=== PATIENT | male | born 1940 | race Caucasian/White ===

== ENCOUNTER → 2018-01-31 | Outpatient (CLI) | payer OTHER ==
[~2018-01-31] MED LIST: ASPI-1471 PO; CYAN100088 PO; FINA5TAB67 PO; FLU180SY11 IM; FLUT16SP19 NS; MECL25TA27 PO; MULT-1335 PO; NIAC500T85 PO; OMEP-125 PO; SIMV-54 PO
[2018-01-31 11:39] LABS: PLATELET COUNT, AUTOMATED 139 K/uL (150-450)
[2018-01-31 11:47] LABS: LDL CHOLESTEROL 47 mg/dl
== END ==
LOC: LAB 11:09
PROVIDERS: ATTEND Emergency Medicine
DX: Z12.5 Encounter for screening for malignant neoplasm of prostate (principal); I25.10 Atherosclerotic heart disease of native coronary artery without angina pectoris; E53.8 Deficiency of other specified B group vitamins; R41.3 Other amnesia
CPT/HCPCS: 36415; 82040; 82247; 82310; 82374; 82435; 82465; 82565; 82607; 82947; 83718; 84075; 84132; 84153; 84155; 84295; 84443; 84450; 84460; 84478; 84520; 85025

== ENCOUNTER 2018-05-22 12:18 | Outpatient (RCR) | payer MEDICARE, OTHER ==
[2018-03-06 10:12] VITALS: BP 157/69
--- NOTE | 2018-03-07 04:56 | [facility] ONCOLOGY NOTE ---
EVENT DATE: March 06, 2018 CHIEF COMPLAINT/REASON FOR VISIT Mr. Mccullough is a pleasant 77-year-old gentleman with mild macrocytic anemia and mild thrombocytopenia, who presents for consultation. HISTORY OF PRESENT ILLNESS Vito presents. He feels extremely well. He feels that he is at his baseline. No fatigue, exercise intolerance, weight loss, concerning lumps or bumps or other symptoms of concern. No frequent infections. He is looking forward to traveling back to [place] for the holidays, but has loved living in [place]. He moved here about three months ago to get away from the busy culture of [place] and the [facility]. He has been extremely happy here. His PSA continues to be high at 7, and he does take finasteride. We do need to follow this, and it may warrant a urology consultation. Regardless, he should have followup PSAs done. His CBCs have been done, and they show mild abnormalities in two cell lines, and so it is very appropriate to do a workup. His B12 has been low in the past but was normal now, and he is on oral replacement. His thyroid level was normal as well. These are appropriate first steps for workup of macrocytic anemia, but we plan to expand it with some additional labs. I am concerned that he may have a very low-grade MDS. MEDICATION LIST 1. Simvastatin 40 mg. 2. Finasteride 5 mg. 3. Flonase twice daily. 4. B12 1000 mcg daily. 5. Multivitamin. 6. Meclizine as needed. 7. Omeprazole 20 mg daily. 8. Aspirin 81 mg daily. PAST MEDICAL HISTORY 1. Osteoarthritis. 2. Cataracts. 3. GERD. 4. History of heart murmur. 5. Hypertension. 6. Hypercholesterolemia. 7. BPH. PAST SURGICAL HISTORY 1. Coronary artery bypass in 1993. 2. Hernia repair approximately four years ago. ALLERGIES No known drug allergies. FAMILY HISTORY Remarkable for heart disease in the family. SOCIAL HISTORY Retired. He has two children, aged 55 and 56. Unfortunately, he is . No recreational drug use, tobacco or alcohol use. REVIEW OF SYSTEMS CONSTITUTIONAL: No fevers, chills, or weight change. HEENT: No headache or vision changes. CARDIOVASCULAR: No chest pain, dyspnea on exertion, or edema. RESPIRATORY: No shortness of breath, wheeze, or cough. GASTROINTESTINAL: No nausea or vomiting. GENITOURINARY: No dysuria or hematuria. MUSCULOSKELETAL: No weakness or joint pains. PSYCHIATRIC: No anxiety or depression. ENDOCRINE: No heat or cold intolerance. SKIN: No concerning findings. Remainder of 14-point review of systems is otherwise negative. PHYSICAL EXAMINATION VITAL SIGNS: Blood pressure 151/69, pulse 61, respiratory rate 16, temperature 96.5 Fahrenheit, oxygen saturation 95% on room air. Weight 65.5 kg, pain 0/10, fatigue 0/10. GENERAL: In stable condition, resting comfortably in the chair. CARDIOVASCULAR: Regular rate and rhythm. I do not appreciate a murmur today, although he does have a documented history of one. LUNGS: Clear to auscultation bilaterally. ABDOMEN: Soft, nontender. No organomegaly or masses. EXTREMITIES: No clubbing, cyanosis, or edema. SKIN: No concerning findings. Remainder of physical exam otherwise otherwise unremarkable. IMPRESSION/REPORT/PLAN Mr. Mccullough is a pleasant 77-year-old gentleman with the followin. Macrocytic anemia. 2. Mild thrombocytopenia. 3. Elevated PSA. I had a detailed discussion about the diagnosis, possible treatment options for mild macrocytic anemia with thrombocytopenia. I discussed the possibility of myelodysplastic syndrome, which is a cancer. He would not require any treatment at this time, though, so I do not feel a bone marrow biopsy is required. I believe we need to expand his lab workup and follow him every three months with labs. He agrees to this. I did repeat many issues, as there was some misunderstanding about what we can or cannot do for myelodysplastic syndrome. I believe he understands that I am concerned about the possibility of this diagnosis but do not believe an aggressive workup is warranted, because no therapy would be indicated at this time, and it would not change his survival or the natural history of this disease with early detection/early treatment. The most important thing is to be checking his labs approximately three months to get a good trend. I have answered all of his many questions today. We will see him back in three months. Dr. Finch, thank you so much for the consultation on this very kind patient of yours. BILLING New patient, level 4. Total time 45 minutes, counseling time 30. MTDD
[2018-03-10 15:59] VITALS: BP 153/72
[2018-03-10 16:30] LABS: PLATELET COUNT, AUTOMATED 142 K/uL (150-450)
[~2018-05-22 12:18] MED LIST changes: +AMLO-125 PO; +ATOR20TA65 PO; +ROSU10TA5 PO
[2018-05-22 12:22] VITALS: BP 173/74
--- NOTE | 2018-05-23 05:22 | ONCOLOGY FOLLOW UP NOTE ---
EVENT DATE: May 22, 2018 CHIEF COMPLAINT/REASON FOR VISIT Mr. Mccullough is a 77-year-old gentleman with new diagnosis of MDS with 5q deletion, who presents for followup. HISTORY OF PRESENT ILLNESS Vito returns. He continues to feel well. He is frustrated with his insurance company's current refusal to pay for standard labs for MDS. As noted in my prior note from March 06, he had macrocytic anemia and thrombocytopenia, which is classic for early MDS in a 77-year-old. We chose not to do a bone marrow biopsy but a lab evaluation, and proved his diagnosis of MDS with a 5q deletion. Our team is continuing to work with his insurance to get this covered. I am more than happy to do a [id number] for this standard work. He continues to have an elevated PSA, and would like him to follow up with Urology. He did not get labs prior to the visit because of the insurance issues. He is concerned that each cost and lab is costing him a lot of money, and until insurance agrees to pay, he is going to refuse to pursue any other labs or followups. He states he will call if he has any symptoms. 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 I am very worried that we will next hear from Vito again when he is in a crisis. MEDICATION LIST 1. Simvastatin 40 mg. 2. Finasteride 5 mg. 3. Flonase twice daily. 4. B12 1000 mcg daily. 5. Multivitamin. 6. Meclizine as needed. 7. Omeprazole 20 mg daily. 8. Aspirin 81 mg daily. PAST MEDICAL HISTORY 1. Osteoarthritis. 2. Cataracts. 3. GERD. 4. History of heart murmur. 5. Hypertension. 6. Hypercholesterolemia. 7. BPH. 8. MDS with 5q deletion. PAST SURGICAL HISTORY 1. Coronary artery bypass in 1993. 2. Hernia repair approximately four years ago. ALLERGIES No known drug allergies. FAMILY HISTORY Remarkable for heart disease in the family. SOCIAL HISTORY Retired. He has two children, aged 55 and 56. Unfortunately, he is . No recreational drug use, tobacco or alcohol use. REVIEW OF SYSTEMS CONSTITUTIONAL: No fevers, chills, or weight change. HEENT: No headache or vision changes. CARDIOVASCULAR: No chest pain, dyspnea on exertion, or edema. RESPIRATORY: No shortness of breath, wheeze, or cough. GASTROINTESTINAL: No nausea or vomiting. GENITOURINARY: No dysuria or hematuria. MUSCULOSKELETAL: No weakness or joint pains. PSYCHIATRIC: No anxiety or depression. ENDOCRINE: No heat or cold intolerance. SKIN: No concerning findings. Remainder of 14-point review of systems is otherwise negative. PHYSICAL EXAMINATION VITAL SIGNS: Blood pressure 173/74, pulse 63, respiratory rate 16, temperature 97.2 Fahrenheit, oxygen saturation 94% on room air. Weight 67.4 kg, pain 0/10, fatigue 0/10. GENERAL: In stable condition, resting comfortably in the chair. HEENT: Normocephalic, atraumatic. CARDIOVASCULAR: Regular rate and rhythm. LUNGS: Clear. ABDOMEN: Soft. No organomegaly or masses. I do not feel his spleen. LYMPHATIC: Unremarkable. Remainder of physical exam unremarkable. IMPRESSION/REPORT/PLAN Mr. Mccullough is a pleasant 77-year-old gentleman with the followin. Myelodysplastic syndrome with 5q deletion. He also has macrocytic anemia and mild thrombocytopenia. He is refusing to get followup labs due to insurance issues. 2. Elevated PSA. His PSA has been 7 in the past. We would like to follow this as well. I had a discussion about the diagnosis, treatment options and natural history of myelodysplastic syndrome. There is a low probability of progression to leukemia on an annual basis, but he is definitely at risk for this. MDS can offer require treatment too. Given the 5q deletion, we could utilize Revlimid and/or erythropoietin. He is discouraged by the news of a cancer as the cause of his diagnosis. He is still quite frustrated with the insurance issues. We will continue to work on them and appeal them. I am hopeful that with coverage of his labs in the future, we may be able to convince him to do the standard [id number] lab and followup evaluation. At this time, he would like to move forward without labs and annual visits. He states he will call if he notices any symptoms. Would encourage urology consult as well in the future. BILLING Return visit, level 4. Total time 30 minutes, counseling time 25. MTDD
== END 2018-06-04 ==
LOC: ONC 12:18
PROVIDERS: ATTEND Internal Medicine
DX: D50.9 Iron deficiency anemia, unspecified (principal); D69.6 Thrombocytopenia, unspecified; Z79.82 Long term (current) use of aspirin; R97.20 Elevated prostate specific antigen [PSA]; Z95.1 Presence of aortocoronary bypass graft; I10 Essential (primary) hypertension; M19.90 Unspecified osteoarthritis, unspecified site; K21.9 Gastro-esophageal reflux disease without esophagitis; E78.00 Pure hypercholesterolemia, unspecified; Z86.79 Personal history of other diseases of the circulatory system; H26.9 Unspecified cataract
CPT/HCPCS: 36415; 82728; 82746; 83615; 84165; 85025; 88271; 88275; 88291; 99202; G0463; 99212

== ENCOUNTER → 2018-11-03 | Outpatient (CLI) | payer OTHER ==
[~2018-11-03] MED LIST changes: -OMEP-125 PO; +OMEP-126 PO; +SIL50 PO; +SILD25TA PO
[2018-11-03 08:19] LABS: PLATELET COUNT, AUTOMATED 140 K/uL (150-450)
[2018-11-03 09:30] LABS: LDL CHOLESTEROL 77 mg/dl
== END ==
LOC: LAB 07:51
PROVIDERS: ATTEND Emergency Medicine
DX: Z12.5 Encounter for screening for malignant neoplasm of prostate (principal); I10 Essential (primary) hypertension; E78.5 Hyperlipidemia, unspecified
CPT/HCPCS: 36415; 82040; 82247; 82310; 82374; 82435; 82465; 82565; 82947; 83718; 84075; 84132; 84153; 84155; 84295; 84450; 84460; 84478; 84520; 85025